=== PATIENT | female | born 1990 | race Caucasian/White ===

== ENCOUNTER 2017-01-23 09:07 | Emergency (ER) | payer MEDICAID ==
[~2017-01-23] VITALS: Ht 172.7 cm; Wt 110.0 kg
[~2017-01-23 09:07] MED LIST: HYDR-3240 PO; NONE PER PT
[2017-01-23] MEDS ORDERED: TRAZ100T15 PO (09:29)
[2017-01-23] MEDS ORDERED: VENL37.52 PO (09:29)
[2017-01-23] MEDS ORDERED: CLINDAMYCIN PMX 300MG/50ML 50 ML IV ONE (10:00)
[2017-01-23] MEDS ORDERED: KETOROLAC 30 MG/1 ML IVPush ONE (10:00)
[2017-01-23] MEDS ORDERED: SODIUM CHLORIDE 0.9% 1,000ML IVBOLUS ONE (10:00)
[2017-01-23 10:05] LABS: HEMATOCRIT 44.7 % (34.6-47.8); HEMOGLOBIN 15.2 g/dL (11.7-16.4)
[2017-01-23 10:17] LABS: BLOOD UREA NITROGEN 10 mg/dL (7-18)
[2017-01-23] MEDS ORDERED: KETOROLAC 30 MG/1 ML ONE (10:32)
[2017-01-23] MEDS ORDERED: DIPH,PERTUSS(ACELL),TET VAC/PF 0.5 ML IM-VACC ONE ×2 (11:44→12:00)
[2017-01-23 12:05] VITALS: BP 140/77
== END 2017-01-23 12:07 | disposition home or self-care (01) ==
LOC: ED 11:23
DX: L03.211 Cellulitis of face (principal); L01.01 Non-bullous impetigo; F17.210 Nicotine dependence, cigarettes, uncomplicated
CPT/HCPCS: 36415; 70491; 80048; 82040; 85025; 90471; 90715; 96365; 96375; 99285; J1885; J7030

== ENCOUNTER 2017-01-27 17:32 | Emergency (ER) | payer MEDICAID ==
[~2017-01-27] VITALS: Ht 172.7 cm; Wt 111.1 kg
[~2017-01-27 17:32] MED LIST changes: +TRAZ100T15 PO; +VENL37.52 PO
[2017-01-27] MEDS ORDERED: CEFTRIAXONE PMX 1GM/50ML 50 ML IVPB ONE (18:30)
[2017-01-27] MEDS ORDERED: SODIUM CHLORIDE FLUSH 10ML SYR IVF ONE (18:30)
[2017-01-27] MEDS ORDERED: CEFTRIAXONE PMX 1GM/50ML 50 ML ONE (18:31)
[2017-01-27] MEDS ORDERED: ONDANSETRON 2MG/ML, 2ML ONE (18:32)
[2017-01-27] MEDS ORDERED: morphine SULFATE 10 MG/ML, 1ML ONE (18:32)
[2017-01-27] MEDS: ONDANSETRON 2MG/ML, 2ML IVPush ONE ×2 (18:43→18:59)
[2017-01-27] MEDS: MORPHINE SULFATE 4 MG/ML, 1ML IVPush PRN ×2 (18:44→18:59)
[2017-01-27] MEDS ORDERED: KETOROLAC 30 MG/1 ML ONE (19:00)
[2017-01-27] MEDS ORDERED: KETOROLAC 30 MG/1 ML IVPush ONE (19:00)
[2017-01-27 20:25] VITALS: BP 120/64
== END 2017-01-27 20:28 | disposition home or self-care (01) ==
LOC: ED 18:52
DX: L01.01 Non-bullous impetigo (principal)
CPT/HCPCS: 96365; 96375; 99284; J0696; J1885; J2405

== ENCOUNTER 2017-04-11 19:10 | Emergency (ER) | payer MEDICAID ==
[~2017-04-11] VITALS: Ht 172.7 cm; Wt 111.0 kg
[2017-04-11 19:28] VITALS: BP 117/74
== END 2017-04-11 21:38 | disposition home or self-care (01) ==
LOC: ED 21:32
DX: N63.10 Unspecified lump in the right breast, unspecified quadrant (principal)
CPT/HCPCS: 71046; 99284

== ENCOUNTER 2017-06-26 13:02 | Emergency (ER) | payer MEDICAID ==
[~2017-06-26] VITALS: Ht 172.7 cm; Wt 86.0 kg
[2017-06-26] MEDS ORDERED: SODIUM CHLORIDE FLUSH 10ML SYR IVF ONE (13:30)
[2017-06-26] MEDS ORDERED: methylPREDNISolone SOD SUCC 125 MG/2 ML IVP ONE (13:30)
[2017-06-26 13:57] LABS: BASOPHILS # (AUTO) 0.04 x10^3/uL (0-0.1); BASOPHILS % (AUTO) 0 % (0-1); EOSINOPHILS # (AUTO) 0.22 x10^3/uL (0-0.4); EOSINOPHILS % (AUTO) 1 % (1-7); LYMPHOCYTES # (AUTO) 1.78 x10^3/uL (1-3.4); LYMPHOCYTES % (AUTO) 11 % (22-44); MD NO; MEAN CORPUSCULAR HEMOGLOBIN 28.8 pg (27.0-34.8); MEAN CORPUSCULAR HGB CONC 33.4 g/dL (32.4-35.8); MEAN CORPUSCULAR VOLUME 86.4 fL (80-100); MEAN PLATELET VOLUME 9.3 fL (7.4-10.4); MONOCYTES # (AUTO) 0.82 x10^3/uL (0.2-0.8); MONOCYTES % (AUTO) 5 % (2-9); NEUTROPHILS # (AUTO) 13.17 x10^3/uL (1.8-6.8); NEUTROPHILS % (AUTO) 82 % (42-75); PLATELET COUNT 326 x10^3/uL (130-400); RED BLOOD COUNT 5.39 x10^6/uL (3.82-5.3); RED CELL DISTRIBUTION WIDTH 14.4 % (9.6-15.2)
[2017-06-26 14:08] LABS: ALBUMIN 4.2 g/dL (3.4-5.0); ANION GAP 4 mmol/L (5-15); CALCIUM 8.9 mg/dL (8.5-10.1); CHLORIDE 111 mmol/L (98-107)
[2017-06-26 14:11] LABS: ALANINE AMINOTRANSFERASE 26 U/L (12-78); ALKALINE PHOSPHATASE 103 U/L (45-117); BILIRUBIN,TOTAL 0.6 mg/dL (0.2-1.0); CREATININE 0.79 mg/dL (0.55-1.02); TOTAL PROTEIN 8.1 g/dL (6.4-8.2)
[2017-06-26] MEDS ORDERED: KETOROLAC 30 MG/1 ML IVPush ONE (14:30)
[2017-06-26] MEDS ORDERED: methylPREDNISolone SOD SUCC 125 MG/2 ML ONE (14:34)
[2017-06-26] MEDS ORDERED: KETOROLAC 30 MG/1 ML ONE (14:34)
[2017-06-26] MEDS ORDERED: OMNIPAQUE 350 MG/ML, 100ML BOTTLE ONE (14:53)
[2017-06-26 16:13] VITALS: BP 115/75
== END 2017-06-26 16:16 | disposition home or self-care (01) ==
LOC: ED 13:15
DX: J20.8 Acute bronchitis due to other specified organisms (principal); B96.89 Other specified bacterial agents as the cause of diseases classified elsewhere
CPT/HCPCS: 36415; 71046; 71275; 80053; 85025; 85379; 93005; 96374; 96375; 99285; J1885; J2930; Q9967

== ENCOUNTER → 2020-06-28 | Outpatient (CLI) | payer MEDICAID ==
[~2020-06-28] MED LIST changes: +HYDR-1067 PO; -HYDR-3240 PO; +TRAZ-175 PO; -TRAZ100T15 PO
== END | disposition home or self-care (01) ==
LOC: CFH 08:08
PROVIDERS: ATTEND Obstetrics & Gynecology
DX: R92.2 Inconclusive mammogram (principal); N64.4 Mastodynia; N63.15 Unspecified lump in the right breast, overlapping quadrants
CPT/HCPCS: 76642; 77062; 77066; G0279